=== PATIENT | male | born 1985 | race Caucasian/White ===

== ENCOUNTER → 2016-12-21 | Day surgery (SDC) | payer OTHER ==
[2016-12-19 15:22] VITALS: Ht 185.4 cm; Wt 155.8 kg
--- NOTE | 2016-12-19 15:50 | PAT Medication Instructions ---
Service Date Dec 19, 2016. Current Home Medication List Lisinopril (Zestril), 10 MG PO QAM Protein (Whey Protein), Unknown Dose [Casein Protein ], Unknown Dose Medication Instructions For Your Scheduled Surgery - Hold the following medications the morning of surgery: Protein (Whey Protein), Unknown Dose Casein Protein, Unknown Dose Lisinopril (Zestril), 10 MG PO QAM If you have any questions please call us at [phone] or [phone] ( [place]) or [phone]
[2016-12-19 16:14] LABS: BASO % 0.2 %; BASO ABS # 0.01 K/uL (0-0.2); COMPLETE YES; HEMATOCRIT 48.3 % (42-52); IG% 0.2 %; LYMPH % 26.8 %; LYMPH ABS # 1.59 K/uL (1.2-3.4); MEAN CELL VOLUME 88.6 fL (80-100); MEAN CORPUSCULAR HEMOGLOBIN 30.5 pg (25-34); MEAN CORPUSCULAR HGB CONC 34.4 g/dl (32-36); MEAN PLATELET VOLUME 10.9 fL (7.4-10.4); MONO % 9.8 %; PLATELET COUNT 167 K/uL (130-400); RED BLOOD COUNT 5.45 M/uL (4.7-6.1); WHITE BLOOD COUNT 5.94 K/uL (4.8-10.8)
[2016-12-19 16:34] LABS: BUN/CREATININE RATIO 16.3 (10-20); CALCIUM 9.3 mg/dl (8.5-10.1); CREATININE 1.2 mg/dl (0.60-1.40); POTASSIUM 4.4 mmol/L (3.5-5.1)
[~2016-12-21] VITALS: Ht 185.4 cm; Wt 155.8 kg
[~2016-12-21] MED LIST: ATROPINE SULFATE 0.1 MG/ML 5ML SYR IV PRN; BUPIVACAINE/EPINEPHRINE 0.5% MPF 1:200,000 30 ML VIAL ONE; CEFAZOLIN 3000 MG/65 ML D5W IV SCH; CEFAZOLIN SOD 1 GM VIAL ONE; CEFAZOLIN SOD 1000MG/55 ML D5W IV ONE; DEXAMETHASONE SOD INJ 4 MG/ML VIAL ONE; FENTANYL CITRATE INJ 50 MCG/1 ML 2 ML VIAL ONE; GLYCOPYRROLATE INJ 0.2 MG/ML VIAL ONE; HYDROmorphone INJ 0.5 MG/0.5 ML SYR IV PRN; HYDROmorphone INJ 0.5 MG/0.5 ML SYR ONE; KETO10TA PO; KETOROLAC TROMETHAMINE 30 MG/ML VIAL IV. PRN; LABETALOL HCL IV 5 MG/ML 20ML IV PRN; LACTATED RINGER'S 1000ML 1,000 ML IV SCH; LIDOCAINE HCL 2% 2 ML VIAL (20MG/ML) ONE; LISI-461 PO; MIDAZOLAM HCL 1 MG/ML 2ML VIAL ONE; NEOSTIGMINE METHYLSULFATE 5 MG/5 ML SYR ONE; ONDANSETRON INJ 2 MG/ML 2 ML VIAL IV PRN; ONDANSETRON INJ 2 MG/ML 2 ML VIAL ONE; OXYC-57 PO; OXYCODONE/ACETAMINOPHEN 5-325 TAB PO PRN; PROPOFOL IV EMULSION 10 MG/ML 20 ML VIAL IV ONE; PROT1POW7; SODIUM CHLORIDE 0.9% 1000ML 1,000 ML IV SCH; [UNRECOGNIZED DRUG - OTHER]
--- NOTE | 2016-12-21 10:02 | History & Physical Bridge - [place] ---
H&P Re-Evaluation Bridge Note: I have examined the patient, reviewed the History & Physical and in the interval since the performance of the History & Physical I have noted the following changes of clinical significance: No changes noted
--- NOTE | 2016-12-21 12:14 | Discharge Instructions-SurgCtr ---
Discharge Instructions Date of Service Dec 21, 2016. Visit Reason for Visit: Right Biceps Tendon Rupture, Elbow Pain Discharge Discharge Diagnosis / Problem: right distal bicep rupture Discharge Goals Goal(s): Improve function, Therapeutic intervention Activity Recommendations Activity Limitations: per Instructions/Follow-up section Anesthesia . Post Anesthesia Instructions: If you have had General Anesthesia or IV Sedation: * Do not drive today. * Resume driving when surgeon permits. * Do not make important decisions or sign legal documents today. * Call surgeon for: 1. Temperature elevations greater than 101 degrees F. 2. Uncontrollable pain. 3. Excessive bleeding. 4. Persistent nausea and vomiting. 5. Medication intolerance (nausea, vomiting or rash). * For nausea and vomiting use only clear liquids such as: tea, soda, bouillon until nausea subsides, then gradually increase diet as tolerated. * If you have any concerns or questions, call your surgeon's office. If physician is unavailable and it is an emergency, call 911 or go to the nearest emergency room. . Instructions / Follow-Up Instructions / Follow-Up MEDICATIONS: * Resume previous medications unless instructed otherwise by your surgeon. * Always take pain medication on a full stomach or with food to avoid upset stomach. * Do not drink alcohol or drive while taking narcotics. * Ibuprofen or Tylenol may be taken if narcotic not needed. No ibuprofen while taking toradol SPECIAL CARE INSTRUCTIONS: __ None __ Keep extremity elevated and iced x 48 hours; apply ice 20-30 minutes 8-10 times/day. May remove at night. _x_ Sling _x_24 hrs/day __ Remove at night __ Shoulder Immobilizer __ 24 hrs/day __ Remove at night _x_ Dressing _x_ Maintain until seen in office, may shower with plastic over site __ Remove dressings in 24-48 hours and then may shower __ Cover incisions with band-aids after showering __ Do not remove steri-strips Call physician if chills or temperature rises above 102 degrees or pain unrelieved by prescribed pain medications at . . follow up in 2 weeks Diet Recommendations Home Diet: resume previous diet Procedures Procedures Performed: Right Distal Biceps Repair Pending Studies Studies pending at discharge: no Medical Emergencies . Who to Call and When: Medical Emergencies: If at any time you feel your situation is an emergency, please call 911 immediately. . Non-Emergent Contact Non-Emergency issues call your: Surgeon . . "Provider Documentation" section prepared by Edd Hutchins. .
--- NOTE | 2016-12-21 12:17 | [facility] Post Operative Brief Note ---
Immediate Operative Summary Operative Date Dec 21, 2016. Pre-Operative Diagnosis Right Biceps Tendon Rupture Post-Operative Diagnosis Same Procedure(s) Performed Right Distal Biceps Repair Surgeon Dr Perez [employer]eron[employer] Teacher Surgeon(s) Curtis Hutchins PA-C Estimated Blood Loss Minimal Findings Right Distal Biceps Rupture Specimens None Anesthesia General Complication(s) None Disposition Recovery Room / PACU
--- NOTE | 2016-12-21 13:21 | Anesthesia Progress Nt - [facility] ---
Anesthesia Post Op Note Date & Time Dec 21, 2016 at 13:21 Vital Signs Pain Intensity: 3 Vital Signs Past 12 Hours Date Time Temp Pulse Resp B/P Pulse Ox O2 Delivery O2 Flow Rate FiO2 12/21/16 13:16 80 12 12/21/16 13:16 80 12 93 12/21/16 13:15 187/102 12/21/16 13:13 37.0 87 20 184/106 95 Room Air 12/21/16 13:11 90 20 12/21/16 13:11 89 20 174/101 94 12/21/16 13:10 190/109 12/21/16 13:06 86 18 12/21/16 13:06 18 12/21/16 13:05 167/104 12/21/16 13:01 69 17 12/21/16 13:01 70 17 99 12/21/16 13:00 178/98 12/21/16 12:56 80 16 94 12/21/16 12:56 76 16 12/21/16 12:55 187/98 12/21/16 12:51 74 14 12/21/16 12:51 73 14 95 12/21/16 12:50 178/90 12/21/16 12:46 86 20 12/21/16 12:46 86 20 94 12/21/16 12:45 184/94 12/21/16 12:41 77 16 176/90 98 12/21/16 12:41 76 16 12/21/16 12:36 76 21 12/21/16 12:36 74 21 98 12/21/16 12:35 166/99 12/21/16 12:31 75 15 12/21/16 12:31 76 15 97 12/21/16 12:30 169/87 12/21/16 12:26 75 16 12/21/16 12:26 75 16 97 12/21/16 12:25 168/92 12/21/16 12:21 80 22 12/21/16 12:21 79 22 96 12/21/16 12:20 172/86 12/21/16 12:16 85 22 12/21/16 12:16 86 22 96 12/21/16 12:15 171/82 12/21/16 12:11 36.3 91 20 157/77 95 Mask 10 12/21/16 12:11 87 18 157/74 95 12/21/16 12:11 88 18 12/21/16 08:13 36.5 71 18 149/95 96 Room Air Notes Mental Status: alert / awake / arousable, participated in evaluation Pt Amnestic to Procedure: Yes Nausea / Vomiting: adequately controlled Pain: adequately controlled Airway Patency, RR, SpO2: stable & adequate BP & HR: stable & adequate Hydration State: stable & adequate Anesthetic Complications: no major complications apparent Pt doing well.
[2016-12-21 14:00] VITALS: BP 140/75; PULSE 75; O2SAT 95
--- NOTE | 2016-12-21 18:14 | OPERATIVE REPORT ---
DATE OF OPERATION: 12/21/2016 SURGEON: Dr. Dewey Perez. CORPORATE COMMUNICATIONS SPECIALIST: YADIRA Jose PREOPERATIVE DIAGNOSIS: Right distal biceps rupture. POSTOPERATIVE DIAGNOSIS: Same. PROCEDURE PERFORMED: Right distal biceps repair. COMPLICATIONS: None. ESTIMATED BLOOD LOSS: Minimal. TOURNIQUET TIME: 63 minutes at 250 mmHg. ANESTHESIA: General. SPECIMENS: None. 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 He tried to catch a falling box and he felt a pop in his arm. He was seen in the local Emergency Room and had an MRI done and referred to our clinic for treatment. He had clearly a distal biceps rupture. No prodromal symptoms. The patient elected to proceed with surgical repair. OPERATIVE PROCEDURE: The patient was taken to the operating room, identified and placed on the operating table in supine position. All contact areas were appropriately padded. IV antibiotics were provided by the anesthesia team. A general anesthetic was implemented by anesthesia team. Right upper extremity tourniquet was then placed. The right arm was then prepped and draped in the usual sterile fashion. The right arm was elevated and exsanguinated with Esmarch and tourniquet was placed at 250 mmHg. A transverse incision was made in the antecubital fossa for a distance of about 5 cm. Blunt dissection was carried out through the subcutaneous tissues down to the level of the fascia. The fascia was incised longitudinally. The underlying biceps tendon was easily identified. There was an elephant's stume to it. We did trim this up, so it was fairly straight on the end. There was a piece of bone in the distal portion of the tendon, which were excised as well. I then put this back up into the arm. A Karen clamp was used to tract the pass to the posterior aspect of the elbow. The skin was marked on the posterior aspect of the elbow and attention was then drawn to the posterior exposure. About a 6-cm incision was made over the posterior aspect of the elbow off the border of the ulna and over the proximal radius. Great care was taken throughout the posterior exposure to keep the arm pronated at all times to protect the posterior interosseous nerve. Incision was made through the subcutaneous tissue down to the fascia. The fascia was incised longitudinally in line with skin incision. I then bluntly dissected directly through the extensor muscle mass, directly down to the radius. The bicipital tuberosity was identified. I cleaned all soft tissue. There did appear to be a piece of bone missing from this area consistent with his x-rays and the bone fragment in the tendon. There was a fairly large muscular envelope and we spent quite a bit of time taking great care to protect the radial nerve at all times. The bicipital tuberosity was cleaned of all soft tissues. I then used a bur to create a hole in the bicipital tuberosity. This was then curetted out. I then used a drill to create 2 drill holes over the cortex laterally into the intramedullary canal. Some passing sutures were placed and retrieved to create a hole in the bicipital tuberosity. I irrigated the wound extensively to get rid of all bony debris. A passing suture was then placed from the anterior cubital fossa to the posterior aspect of the elbow. Attention was then drawn toward preparing the biceps tendon. The biceps tendon was stitched with 2 sutures. I placed a #2 FiberWire in a running fashion up and down the tendon and then a #5 Ethibond suture was placed in a modified Carrie suture technique. I then used the passing suture to pass the biceps through the antecubital fossa to the posterior aspect of the elbow. Great care was taken to protect the lateral antebrachial cutaneous nerve and not place any tension on it. The passing sutures were then used to pass the tendon sutures into the intramedullary canal and the sutures were then tied over the lateral cortex of the radius. This provided excellent approximation of the tendon into the bone tunnel. I then once again irrigated both wounds extensively. I injected locally with 30 mL of 0.5% Marcaine with epinephrine. The tourniquet was then let down for a tourniquet time 63 minutes. Hemostasis was assured with use of electrocautery. The dorsal fascia was closed with 2-0 Vicryl suture in running fashion. The subcutaneous tissues of both wounds were then closed with 2-0 Dexon suture in a buried interrupted fashion. Skin was then closed with 3-0 nylon suture in a horizontal mattress fashion. The arm was then cleaned and dried and a sterile dressing of Xeroform, 4 x 4's, sterile cast padding and a well-padded posterior splint followed by a sling were applied. The patient then brought out of general anesthesia and transferred to the recovery room in stable condition. The patient tolerated the procedure well with no complications. All needle and sponge counts were correct at the end of the operation. Just make a note that we took great care not expose the ulna during this procedure to avoid risk of a synostosis formation. I attest to the content of the Intraoperative Record and any orders documented therein. Any exceptions are noted below. KIARA
== END | disposition home or self-care (01) ==
LOC: X.SURG 07:50
PROVIDERS: ATTEND Orthopaedic Surgery Sports Medicine
DX: S46.201A Unspecified injury of muscle, fascia and tendon of other parts of biceps, right arm, initial encounter (principal); W20.8XXA Other cause of strike by thrown, projected or falling object, initial encounter; Y99.0 Civilian activity done for income or pay